=== PATIENT | male | born 1995 | race African-American/Black ===

== ENCOUNTER 2017-10-29 01:57 | Emergency (ER) | payer SELFPAY ==
[~2017-10-29] VITALS: Ht 167.6 cm; Wt 63.6 kg
[2017-10-29 02:58] VITALS: BP 135/85
== END 2017-10-29 03:00 | disposition left against medical advice (07) ==
LOC: ER 01:57
DX: S00.81XA Abrasion of other part of head, initial encounter (principal); S00.212A Abrasion of left eyelid and periocular area, initial encounter; S60.222A Contusion of left hand, initial encounter; S60.416A Abrasion of right little finger, initial encounter; S30.0XXA Contusion of lower back and pelvis, initial encounter; X99.8XXA Assault by other sharp object, initial encounter; Y93.89 Activity, other specified; Y92.481 Parking lot as the place of occurrence of the external cause; F10.129 Alcohol abuse with intoxication, unspecified; F12.90 Cannabis use, unspecified, uncomplicated; Y90.9 Presence of alcohol in blood, level not specified
CPT/HCPCS: 99283